=== PATIENT | male | born 1945 | race Caucasian/White ===

== ENCOUNTER 2024-05-11 11:51 | Outpatient (OUT) | payer MEDICARE, SELFPAY ==
--- NOTE | 2024-05-11 12:13 | MR_ITS ---
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 TECHNIQUE: Multiplanar, multisequential MRI images of brain were obtained without and with injection of contrast. FINDINGS: The cerebral sulci as well as ventricular system are appropriate for age. There is no restricted diffusion. Hyperintensities on T2 and FLAIR images in the alberto radiata and centrum semiovale with sparing of U fibers are nonspecific, statistically most likely consistent with microvascular ischemic changes. There is no intracranial mass, mass effect, midline shift, intra or extra-axial fluid collection or large hemorrhage. No abnormal enhancing lesion is noted. The cochlea vestibular nerves and semicircular canals are unremarkable. Normal flow-void in the intracranial vessels is noted. The visualized portions of orbits, mastoid air cells as well as paranasal sinuses are unremarkable. MR/MR head/brain wo/w con IMPRESSION: No acute intracranial process is noted. No definite radiological finding to explain patient's symptoms. Electronically authenticated by: IRENE CRABTREE Date: 05/11/2024 15:24
[2024-05-11 12:19] LABS: Estimated GFR (African America >60 (>=60); Estimated GFR (Non-African Ame >60 (>=60)
== END 2024-05-11 11:52 | disposition home or self-care (01) ==
LOC: LAB 12:00
PROVIDERS: Visit Provider Otolaryngology
DX: H90.3 Sensorineural hearing loss, bilateral (principal); H93.12 Tinnitus, left ear; H92.02 Otalgia, left ear
CPT/HCPCS: 36415; 70553; 82565; A9575